=== PATIENT | male | born 1995 | race African-American/Black ===

== ENCOUNTER 2017-06-02 12:14 | Emergency (ER) | payer BC ==
[~2017-06-02] VITALS: Ht 182.9 cm; Wt 83.9 kg
[~2017-06-02 12:14] MED LIST: NOHOMEMEDICATIONS; NORFLEX100 MG PO; ULTRAM 50MG TAB50 MG PO
[2017-06-02] MEDS ORDERED: AUGMENTIN 875-1 EACH PO (12:30)
[2017-06-02] MEDS ORDERED: ACETAMINOPHEN-1 EAC1 PO (12:31)
[2017-06-02] MEDS ORDERED: PERIOGARD473 ML PO (12:32)
[2017-06-02] MEDS ORDERED: HYDROCODONE-AP1 EAC6 PO (13:10)
[2017-06-02] MEDS ORDERED: CLEOCIN HCL150 MG PO (13:10)
[2017-07-15] MEDS ORDERED: CLEOCIN HCL300 MG PO (12:46)
== END 2017-06-02 14:15 | disposition home or self-care (01) ==
LOC: ER 12:14
DX: K04.7 Periapical abscess without sinus (principal)